=== PATIENT | male | born 1955 | race Caucasian/White ===

== ENCOUNTER 2017-01-21 22:58 | Emergency (ER) | payer BC ==
[~2017-01-21] VITALS: Ht 185.4 cm; Wt 81.6 kg
[2017-01-22 00:09] LABS: BASO # 0.1 K/mm3 (0.0-0.2); BASO % 0.8 % (0.0-1.0); EOS # 0.4 K/mm3 (0.0-0.50); EOS % 4.7 % (0.0-3.0); LARGE UNSTAINED CELL # 0.3 K/mm3 (0.0-0.4); LARGE UNSTAINED CELL % 4.2 % (0.0-4.0); LYMPH % 36.1 % (24.0-44.0); MEAN CORPUSCULAR HEMOGLOBIN 30.9 pg (27.0-33.0); MEAN CORPUSCULAR HGB CONC 33.4 g/dl (32.0-36.5); MEAN CORPUSCULAR VOLUME 92.5 fl (80.0-96.0); MONO # 0.8 K/mm3 (0.0-0.8); MONO % 10.5 % (0.0-5.0); NEUTROPHILS # 3.2 K/mm3 (1.8-7.7); NEUTROPHILS % 43.7 % (36.0-66.0); PLATELET COUNT, AUTOMATED 134 k/mm3 (150-450); RED CELL DISTRIBUTION WIDTH 13.2 % (11.5-14.5); WHITE BLOOD COUNT 7.4 K/mm3 (4.0-10.0)
[2017-01-22 00:25] LABS: ALBUMIN 3.8 GM/DL (3.2-5.2); ALBUMIN/GLOBULIN RATIO 1.46 (1.00-1.93); ALKALINE PHOSPHATASE 68 U/L (45-117); ALT/SGPT 74 U/L (12-78); ANION GAP 7 MEQ/L (8-16); AST/SGOT 37 U/L (15-37); BILIRUBIN,DIRECT 0.1 MG/DL (0.0-0.2); BILIRUBIN,TOTAL 0.6 MG/DL (0.2-1.0); BLOOD UREA NITROGEN 25 MG/DL (7-18); CALCIUM LEVEL 8.7 MG/DL (8.8-10.2); CARBON DIOXIDE LEVEL 28 MEQ/L (21-32); CHLORIDE LEVEL 105 MEQ/L (98-107); CREATININE FOR GFR 0.85 MG/DL (0.70-1.30); GLOMERULAR FILTRATION RATE > 60.0 (>49); GLUCOSE, FASTING 104 MG/DL (80-110); POTASSIUM SERUM 3.9 MEQ/L (3.5-5.1); SODIUM LEVEL 140 MEQ/L (136-145); TOTAL PROTEIN 6.4 GM/DL (6.4-8.2)
[2017-01-22] MEDS ORDERED: NS 1,000 ML IV ONE (02:00)
[2017-01-22 04:19] VITALS: BP 118/77
--- NOTE | 2017-01-22 09:36 | REP ---
CHEST PA AND LATERAL: 01/21/2017. Comparison: 03/22/2016. Clinical history: Weakness. Findings: Lungs are well inflated. There is no pleural effusion, lateral pleural thickening or apical scarring. No infiltrate, atelectasis or mass. The heart, mediastinal and hilar contours were normal. There are a few cuffed bronchi in the perihilar regions that might reflect reactive airway disease or bronchitis. The aorta is calcified at the arch without aneurysm. Airway midline. No mediastinal or hilar mass nor contour abnormality. Bones without acute compression deformity or focal lesion. No free air under the diaphragm. Impression:1. No acute cardiopulmonary change. A few cuffed bronchi again seen that may reflect reactive airway disease or bronchitis. Signed by Eliot Chamberlain MD 01/22/2017 10:53 A
--- NOTE | 2017-01-22 21:02 | ECGEPIP ---
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
== END 2017-01-22 04:24 | disposition home or self-care (01) ==
LOC: EDSEX 22:58 → M ED 22:58 → EDBD 22:58 → M ED 01-22 00:42
DX: E86.0 Dehydration (principal)

== ENCOUNTER → 2018-06-06 | Outpatient (REF) | payer BC | LOC: M LAB REF 16:55 | DX: L72.3 Sebaceous cyst (principal) | CPT/HCPCS: 87186 ==

== ENCOUNTER 2018-11-26 06:54 | Day surgery (SDC) | payer BC ==
[~2018-11-26] VITALS: Ht 185.4 cm; Wt 81.6 kg
[2018-11-26] MEDS ORDERED: NS 1,000 ML IV ONE (07:00)
[2018-11-26] MEDS ORDERED: LIDOCAINE 2% INJ 100 MG/5 ML SDV (FOR ANES.) As Ordered ONE (07:13)
[2018-11-26] MEDS ORDERED: PROPOFOL 200 MG/20 ML VIAL As Ordered ONE (07:13)
--- NOTE | 2018-11-26 08:44 | ROOR ---
Patient Name: Ac Adam Procedure Date: 11/26/2018 8:18 AM Date of : 1955 Age: 63 [facility] Gender: Male Note Status: Finalized Procedure: Total Colonoscopy to Cecum Indications: Colon cancer screening in patient at increased risk: Colorectal cancer in mother, High risk colon cancer surveillance: Personal history of colonic polyps Providers: Niles Velasquez MD Referring MD: HERMILO SILVA JR, MD Requesting Provider: Medicines: Monitored Anesthesia Care Complications: No immediate complications. Procedure: Pre-Anesthesia Assessment: - The heart rate, respiratory rate, oxygen saturations, blood pressure, adequacy of pulmonary ventilation, and response to care were monitored throughout the procedure. The Colonoscope was introduced through the anus and advanced to the cecum, identified by appendiceal orifice and ileocecal valve. The colonoscopy was performed without difficulty. The patient tolerated the procedure well. The quality of the bowel preparation was excellent. Findings: The perianal and digital rectal examinations were normal. Non-bleeding internal hemorrhoids were found during retroflexion. The hemorrhoids were small and Grade I (internal hemorrhoids that do not prolapse). No other significant abnormalities were identified in a careful examination of the remainder of the colon. The exam was otherwise without abnormality on direct and retroflexion views. Impression: - Non-bleeding internal hemorrhoids. - The examination was otherwise normal on direct and retroflexion views. - No specimens collected. - The exam was otherwise normal to the cecum. Recommendation: - Patient has a contact number available for emergencies. The signs and symptoms of potential delayed complications were discussed with the patient. Return to normal activities tomorrow. Written discharge instructions were provided to the patient. - High fiber diet. - Discharge patient to home. - Continue present medications. - Repeat colonoscopy in 5 years for screening purposes. - Return to referring physician. - The findings and recommendations were discussed with the patient's family. Niles Velasquez MD Niles Velasquez MD 11/26/2018 8:43:49 AM This report has been signed electronically. Number of Addenda: 0 Note Initiated On: 11/26/2018 8:18 AM Estimated Blood Loss: Estimated blood loss: none.
[2018-11-26 09:05] VITALS: BP 118/79
== END 2018-11-26 09:10 | disposition home or self-care (01) ==
LOC: M OPP 06:54
PROVIDERS: ATTEND Internal Medicine Gastroenterology
DX: Z12.11 Encounter for screening for malignant neoplasm of colon (principal); Z86.010 Personal history of colon polyps; Z80.0 Family history of malignant neoplasm of digestive organs; K64.0 First degree hemorrhoids

== ENCOUNTER 2019-01-21 08:31 | Emergency (ER) | payer BC, MEDICARE ==
[~2019-01-21] VITALS: Ht 185.4 cm; Wt 81.8 kg
[2019-01-21 09:26] LABS: BASO # 0.1 10^3/uL (0.0-0.2); BASO % 0.6 % (0.0-1.0); EOS # 0.2 10^3/uL (0.0-0.50); EOS % 1.9 % (0.0-3.0); HEMATOCRIT 46.7 % (42.0-52.0); HEMOGLOBIN 15.7 g/dl (13.5-17.5); LYMPH # 1.9 10^3/uL (1.5-4.5); LYMPH % 22.5 % (24.0-44.0); MEAN CORPUSCULAR HEMOGLOBIN 30.8 pg (27.0-33.0); MEAN CORPUSCULAR HGB CONC 33.6 g/dl (32.0-36.5); MEAN CORPUSCULAR VOLUME 91.6 fl (80.0-96.0); MONO % 12.2 % (0.0-5.0); NEUTROPHILS # 5.3 10^3/uL (1.8-7.7); NEUTROPHILS % 62.6 % (36.0-66.0); PLATELET COUNT, AUTOMATED 182 10^3/uL (150-450); WHITE BLOOD COUNT 8.4 10^3/uL (4.0-10.0)
[2019-01-21 09:47] LABS: BLOOD UREA NITROGEN 22 MG/DL (7-18); CALCIUM LEVEL 8.8 MG/DL (8.8-10.2); CARBON DIOXIDE LEVEL 28 MEQ/L (21-32); CHLORIDE LEVEL 104 MEQ/L (98-107); CREATININE FOR GFR 1.01 MG/DL (0.70-1.30); GLOMERULAR FILTRATION RATE > 60.0 (>49); GLUCOSE, FASTING 95 MG/DL (70-100); POTASSIUM SERUM 4.6 MEQ/L (3.5-5.1); SODIUM LEVEL 137 MEQ/L (136-145)
[2019-01-21 10:04] VITALS: BP 137/80
--- NOTE | 2019-01-21 10:04 | REP ---
Abdominal aorta ultrasound: Abdominal Aortic Measurements are as follows: Proximal 2.2 cm AP 2.6 cm TRV Renal Artery Level 2.3 cm AP 2.5 cm TRV Mid Aorta 2.2 cm AP 2.4 cm TRV Distal Aorta 2.1 cm AP 2.3 cm TRV R Iliac Artery 1.1 cm AP 1.1 cm TRV L Iliac Artery 1.1 cm AP 1.1 cm TRV Impression: There is no evidence of abdominal aortic aneurysm. Electronically Signed by Bret Jimenez MD 01/21/2019 09:55 A
[2019-01-21 10:38] LABS: INR 1.03; PROTHROMBIN TIME 13.6 SECONDS (12.1-14.4)
[2019-01-21 10:39] LABS: PARTIAL THROMBOPLASTIN TIME 35.5 SECONDS (25.4-37.6)
== END 2019-01-21 10:05 | disposition home or self-care (01) ==
LOC: M ED 08:31
DX: R19.8 Other specified symptoms and signs involving the digestive system and abdomen (principal)

== ENCOUNTER → 2020-05-19 | Outpatient (REF) | payer BC, MEDICARE | LOC: M LAB REF 10:49 | PROVIDERS: ATTEND Dermatology | DX: L72.0 Epidermal cyst (principal) ==

== ENCOUNTER 2020-11-11 04:59 | Emergency (ER) | payer BC, MEDICARE ==
[~2020-11-11] VITALS: Ht 185.4 cm; Wt 77.6 kg
[2020-11-11 05:00] VITALS: BP 143/75
--- OUTSIDE RECORDS SUMMARY | 2020-11-11 05:54 | CCD | Continuity of Care Document ---
Author Author Lab Schedule, Ac Coats Organization Unknown Address [address] [place] [id number] Phone Unavailable Care Team Providers Care Surveyor Rod Helper Name Role Phone Wilberto Thomas JR, MD AUTM Unavailable Xiang Peck MD AUTM [phone] Problems Active Problems Provider Date Hyperlipidemia screening Yamil Ray D.O. Onset: 1 12/01/2012 History of malignant neoplasm of skin Yamil Ray D.O. Onset: 09/30/2013 Degenerative joint disease involving multiple joints Yamil aRy D.O. Onset: 09/30/2013 Pure hypercholesterolemia Yamil Ray D.O. Onset: 09/30/2013 Social History Type Date Description Comments Sex Unknown ETOH Use consumes 4-5 beers per week Tobacco Use Start: Unknown Patient has never smoked Allergies, Adverse Reactions, Alerts Description No Known Drug Allergies Medications Active Medications SIG Qnty Indications Ordering Provide r Date No OTC Meds Elias Byers 10/03/2011 Sennosides 8.6mg Tablets Unknown Medications Administered in Office Medication SIG Qnty Indications Ordering Provider Date Administration Of Flu Vaccine Inj ection Wilberto Thomas MD 07/16/2020 Administration Of Flu Vaccine Inj alysia Thomas MD 08/01/2019 Immunization Adminstration,1 Vaccine/Tox oid Injection Wilberto Thomas MD 2017 Administration Of Flu Vaccine Inj ection Elias ByersOSteve 08/04 Administration Of Flu Vaccine Inj mackenzieion Wilberto Thomas MD 08/12/2003 Administration Of Flu Vaccine Inj ection Wilberto Thomas MD 09/05/2002 Immunizations CPT Code Status Date Vaccine Lot # [id number] Given 10/05/2020 Pneumovax 23 [id number] 49870 Given 07/16/2020 Influenza Vaccin e Quadrivalent Preser/Antibiotic Free Im Use [id number] U-PneuC Given 10/14/2019 Prevnar 13 75433 Given 10/14/2019 Shingrix Zoster Vaccine (HZV), Recombinant, Subunit, Adjuvanted 98581 Given 08/01/2019 Influenza Vaccin e Quadrivalent Preser/Antibiotic Free Im Use 802201 37782 Given 07/26/2018 Influenza Virus Vaccine, Quadrivalent (Cciiv4), Derived From Cell [id number] Given 10/03/2011 Fluvirin Virus Vaccine 19322 Given 11/02/2009 Tetanus/Diptheria(Td)Toxoids Preservative Free 23153 Given 11/02/2009 PPD 65489 Given 08/06/2009 Influenza Virus Vaccine 66095 Given 08/04/2005 Influenza Virus Vaccine 94977 Given 08/12/2003 Influenza Virus Vaccine 60136 Given 09/05/2002 Influenza Virus Vaccine Vital Signs Date Vital Result Comment 10/05/2020 8:59am BP Systolic 136 mmHg BP Diastolic 80 mmHg Height 73 inches 6'1" Weight 168.25 lb BMI (Body Mass Index) 22.2 kg/m2 08/18/2020 1:53pm BP Systolic 130 mmHg BP Diastolic 70 mmHg Height 73 inches 6'1" Weight 179.00 lb BMI (Body Mass Index) 23.6 kg/m2 Results Test Acquired Date Facility Test Result H/L Range Note Laboratory test finding 10/02/2020 [facility] Otolaryngologist: [place] [address] [phone] PSA 0.49 ng/mL <4.00 1 Complete Blood Count 10/02/2020 [facility] Otolaryngologist: RICHIE Jones [address] [phone] WBC 5.3 x10*3/UL 4.1 - 10.9 RBC 5.05 x10*6/UL 4.20 - 6.30 Hemoglobin 15.4 g/dL 12.0 - 18.0 Hematocrit 44.3 % 37.0 - 51.0 MCV 87.7 fL 80.0 - 97.0 MCH 30.6 pg 26.0 - 32.0 MCHC 34.8 g/dL 31.0 - 38.0 RDW 13.6 % 11.6 - 13.7 PLT 177 x10*3/UL 140 - 440 MPV 9.4 FL 7.8 - 11.0 Lymph % 26.9 % 10.0 - 58.5 Mid % 6.2 % 1.7 - 9.3 Neut % 66.9 % 37.0 - 92.0 Lymph # 1.4 x10*3/UL 0.6 - 4.1 Mid # 0.4 x10*3/UL 0.1 - 0.6 Neut # 3.5 x10*3/UL 2.0 - 7.8 Comprehensive Chem Profile 10/02/2020 [facility], Otolaryngologist: [place] [address] [phone] Glucose 96 mg/dL 74 - 99 2 BUN 11 mg/dL 7 - 18 Creatinine 0.9 mg/dL 0.6 - 1.3 Sodium 138 mEq/L 136 - 145 Potassium 4.8 mEq/L 3.5 - 5.1 Chloride 101 mEq/L 98 - 107 Carbon Dioxide 28 mEq/L 21 - 32 Calcium 9.0 mg/dL 8.5 - 10.1 Alk. Phosphatase 65 mg/dL 46 - 116 Total Bilirubin 1.1 mg/dL High 0.2 - 1.0 Ast (Sgot) 23 U/L 15 - 37 Alt (SGPT) 27 U/L 12 - 78 Albumin 4.3 g/dL 3.4 - 5.0 Total Protein 6.8 g/dL 6.4 - 8.2 A/G Ratio 1.72 CALC 1.00 - 1.90 GFR >= 60 mL/min >60 GFR >= 60 mL/min >60 3 Lipid Profile 10/02/2020 [facility] , Otolaryngologist: [place] [address] [phone] Cholesterol 183 mg/dL 131 - 200 Triglycerides 42 mg/dL 30 - 150 HDL Cholesterol 79 mg/dL High 35 - 60 LDL (Calculated) 96 CALC 50 - 159 Laboratory test finding 10/02/2020 [facility] Otolaryngologist: [place] [address] [phone] Thyroid Stimulating Hormone 2.25 uIU/mL 0.3 6 - 3.74 1 This assay was performed on the Siemens Dimension EXL using the B- Galactosidase/CPRG methodology and should not be compared interchangeably with other methods. The PSA should not be used alone as a screening test for the presence or absence of malignant disease. 2 100-125 mg/dL PRE-DIABET ES/FASTING >126 mg/dL DIABETES/FASTING 3 CHRONIC KIDNEY DISEASE STAGI NG PER NKF STAGE I & II GFR >= 60 NORMAL TO MILDLY DECREASED STAGE III GFR 30-59 MODERATELY DECREASED STAGE IV GFR 15-29 SEVERELY DECREASED STAGE V GFR <15 VERY LITTLE GFR LEFT ESRD GFR <15 ON BITUMINOUS DISTRIBUTOR OPERATOR Procedures Date Code Description Status 11/26/2018 73110599 Colonoscopy Completed 02/08/2016 [id number] Colonoscopy Completed 10/21/2005 [id number] Colonoscopy Completed Medical Devices Description No Information Available Encounters Type Date Location Provider Dx Diagnosis Office Visit 08/18/2020 2:00p [facility] Enzo pradip Melara JR PA K59.00 Constipation, unspecified Assessments Date Code Description Provider 10/02/2020 E78.00 Pure hypercholesterolemia, unspe cified Wilberto Thomas MD 10/02/2020 E78.00 Pure hypercholesterolemia, unspe cified Lab Schedule 10/02/2020 K59.00 Constipation, unspecified Georgi Thomas MD 10/02/2020 K59.00 Constipation, unspecified Lab Sc hedule 10/02/2020 N40.0 Benign prostatic hyp erplasia without lower urinary tract symptoms Wilberto Thomas MD 10/02/2020 N40.0 Benign prostatic hyperplasia wit hout lower urinary tract sym Lab Schedule 10/02/2020 Z12.5 Encounter for screening for anjali gnant neoplasm of prostate Wilberto Thomas MD 10/02/2020 Z12.5 Encounter for screening for anjali gnant neoplasm of prostate Lab Schedule 08/18/2020 K59.00 Constipation, unspecified BOBO Mari JR 07/16/2020 Z23 Encounter for immunization Lacho Thomas MD 07/16/2020 Z23 Encounter for immunization Nurse Schedule Plan of Treatment Future Appointment(s):* 10/06/2021 9:00 am - Nurse #2 at [facility] * 10/06/2021 9:20 am - Wilberto Thomas MD at [facility] 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 PT WOULD LIKE TO BE SEEN ROXANN DUE TO CONSTIPATION GETTING WORSE Patient Notified 09/16/2020 [facility] Medical Practice [address] [address] [phone]
--- OUTSIDE RECORDS SUMMARY | 2020-11-11 05:55 | CCD | Continuity of Care Document ---
Author Author Lab Schedule, Ac Coats Organization Unknown Address [address] [place] [address] Phone Unavailable Care Team Providers Care Transmission Rebuilder Name Role Phone Wilberto Thomas JR, MD AUTM Unavailable Xiang Peck MD AUTM [phone] Problems Active Problems Provider Date Hyperlipidemia screening Yamil Ray D.O. Onset: 1 12/01/2012 History of malignant neoplasm of skin Yamil Ray D.O. Onset: 09/30/2013 Degenerative joint disease involving multiple joints Yamil Ray D.O. Onset: 09/30/2013 Pure hypercholesterolemia Yamil Ray [...] CPT Code Status Date Vaccine Lot # [id number] Given 07/16/2020 Influenza Vaccin e Quadrivalent Preser/Antibiotic Free Im Use [id number] U-PneuC Given 10/14/2019 Prevnar 13 61260 Given 10/14/2019 Shingrix Zoster Vaccine (HZV), Recombinant, Subunit, Adjuvanted 46355 Given 08/01/2019 Influenza Vaccin e Quadrivalent Preser/Antibiotic Free Im Use 365831 99132 Given 07/26/2018 Influenza Virus Vaccine, Quadrivalent (Cciiv4), Derived From Cell [id number] Q2037 Given 10/03/2011 Fluvirin Virus Vaccine 13558 Given 11/02/2009 Tetanus/Diptheria(Td)Toxoids Preservative Free 27058 Given 11/02/2009 PPD 19482 Given 08/06/2009 Influenza Virus Vaccine 16042 Given 08/04/2005 Influenza Virus Vaccine 08771 Given 08/12/2003 Influenza Virus Vaccine 86026 Given 09/05/2002 Influenza Virus Vaccine Vital Signs [...] H/L Range Note Laboratory test finding 10/02/2020 [facility], [facility] Hemodialysis Technician: [place] [address] [phone] PSA 0.49 ng/mL <4.00 1 Complete Blood Count 10/02/2020 [facility] [employer] [facility]i Hemodialysis Technician: RICHIE Jones [address] [phone] WBC 5.3 x10*3/UL 4.1 - 10.9 RBC [...] 2.0 - 7.8 Comprehensive Chem Profile 10/02/2020 [facility], Hemodialysis Technician: [place] [address] [phone] Glucose 96 mg/dL 74 - 99 2 [...] 60 mL/min >60 3 Lipid Profile 10/02/2020 [facility] , Hemodialysis Technician: [place] [address] [phone] Cholesterol 183 mg/dL 131 - 200 Triglycerides 42 mg/dL 30 - 150 HDL Cholesterol 79 mg/dL High 35 - 60 LDL (Calculated) 96 CALC 50 - 159 1 This assay was performed on the [employer] EXL using the B- Galactosidase/CPRG methodology and [...] LITTLE GFR LEFT ESRD GFR <15 ON SENIOR QUALITY ANALYST Procedures Date Code Description Status 11/26/2018 [id number] Colonoscopy Completed 02/08/2016 [id number] Colonoscopy Completed 10/21/2005 [id number] Colonoscopy Completed Medical Devices Description No Information Available Encounters Type Date Location Provider Dx Diagnosis Office Visit 08/18/2020 2:00p [facility] 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 PT WOULD LIKE TO BE SEEN ROXANN DUE TO CONSTIPATION GETTING WORSE Patient Notified 09/16/2020 [facility] Medical Practice [address] [address] [phone]
--- OUTSIDE RECORDS SUMMARY | 2020-11-11 05:55 | CCD | Continuity of Care Document ---
Author Author Ac PECK MD Organization Unknown Address [address] [place] [address] Phone [phone] Care Team Providers Care Squad Leader Name Role Phone Wilberto Thomas MD @ [facility] [phone] Problems Description No Information Available Social History Type Date Description Comments Sex Unknown ETOH Use Denies alcohol use Tobacco Use Start: Unknown Non Smoker Allergies, Adverse Reactions, Alerts Description No Known Drug Allergies Medications Active Medications SIG Qnty Indications Ordering Provide r Date Sennosides 8.6mg Tablets take 2 tablets by mouth daily at bedtime 60tabs K59.00 Xiang Peck MD 09/21/20 20 History Medications No Active Medications Unknown 04/2020 - 09/21/2020 Immunizations Description No Information Available Vital Signs Date Vital Result Comment 09/21/2020 4:04pm BP Systolic 160 mmHg BP Diastolic 90 mmHg Height 73 inches 6'1" Weight 168.00 lb BMI (Body Mass Index) 22.2 kg/m2 [place] Body Weight 184 lb Weight 76.205 kg BSA (Body Surface Area) 2.00 m2 Results Description No Information Available Procedures Description No Information Available Medical Devices Description No Information Available Encounters Type Date Location Provider Dx Diagnosis Office Visit 09/21/2020 3:15p [facility] Xiang garcia MD K59.00 Constipation, unspecified Assessments Date Code Description Provider 09/21/2020 K59.00 Constipation, unspecified Xiang Peck MD Plan of Treatment 09/21/2020 - Xiang Peck MD* K59.00 Constipation, unspecified * * New Medication:* Sennosides 8.6 mg * Comments:* sudden onset constipation Jul 2709/2020. Has been working on correctiin this since. doing a bit better on low fiber.He still has high lactose intake. * Follow up:* 1 month * Recommendations:* Xray reportedly did not show large stool. I wonder if he has excess gas related to lactose intolerance. I rec avoiding dairy products x 1 week straight If not better, then can try senna -daily dosing. Follow up with me in 1 month Would at this time not repeat colonoscopy--last done in 2019 was normal I note increased TSH in 2017. Not sure if has had repeat thyroid testing. If not, then would recommend TFT---I will leave this up to PCP Functional Status Description No Information Available Mental Status Description No Information Available Referrals Description No Information Available
--- OUTSIDE RECORDS SUMMARY | 2020-11-11 05:55 | CCD | Continuity of Care Document ---
Author Author Nurse #Ac Guerrero Organization Unknown Address [address] [address] Phone Unavailable Care Team Providers Care Automobile And Property Underwriter Name Role Phone Wilberto Thomas JR, MD AUTM Unavailable Xiang Peck MD AUTM [phone] Problems Active Problems Provider Date Hyperlipidemia screening [...] MD 07/16/2020 Administration Of Flu Vaccine Inj mackenzieion Wilberto Thomas MD 08/01/2019 Immunization Adminstration,1 Vaccine/Tox oid Injection Wilberto Thomas MD 2017 Administration Of Flu Vaccine Inj ection Elias ByersOSteve 08/04 Administration Of Flu Vaccine Inj ection Wilberto Thomas MD 08/12/2003 Administration Of Flu Vaccine Inj ection Wiblerto Thomas MD 09/05/2002 Immunizations CPT Code Status Date Vaccine Lot # 11479 Given 07/16/2020 Influenza Vaccin e Quadrivalent Preser/Antibiotic Free Im Use [id number] U-PneuC Given 10/14/2019 Prevnar 13 34117 Given 10/14/2019 Shingrix Zoster Vaccine (HZV), Recombinant, Subunit, Adjuvanted 62898 Given 08/01/2019 Influenza Vaccin e Quadrivalent Preser/Antibiotic Free Im Use [id number] 05760 Given 07/26/2018 Influenza Virus Vaccine, Quadrivalent (Cciiv4), Derived From Cell [id number] Q2037 Given 10/03/2011 Fluvirin Virus Vaccine 58314 Given 11/02/2009 Tetanus/Diptheria(Td)Toxoids Preservative Free 17905 Given 11/02/2009 PPD 68472 Given 08/06/2009 Influenza Virus Vaccine 28275 Given 08/04/2005 Influenza Virus Vaccine 80518 Given 08/12/2003 Influenza Virus Vaccine 18098 Given 09/05/2002 Influenza Virus Vaccine Vital Signs Date Vital Result Comment 10/05/2020 8:59am BP Systolic 140 mmHg BP Diastolic 80 mmHg Height 73 inches 6'1" Weight 168.25 lb BMI (Body Mass Index) 22.2 kg/m2 08/18/2020 1:53pm BP Systolic 130 mmHg BP Diastolic 70 mmHg Height 73 inches 6'1" Weight 179.00 lb BMI (Body Mass Index) 23.6 kg/m2 Results Test Acquired Date Facility Test Result H/L Range Note Laboratory test finding 10/02/2020 [facility] [employer] [facility] shelli roland Retail Salesperson: [place] [address] [phone] PSA 0.49 ng/mL <4.00 1 Complete Blood Count 10/02/2020 [facility] Retail Salesperson: RICHIE Jones [address] [phone] WBC 5.3 x10*3/UL 4.1 - 10.9 RBC [...] 2.0 - 7.8 Comprehensive Chem Profile 10/02/2020 [facility], Retail Salesperson: [place] [address] [phone] Glucose 96 mg/dL 74 - 99 2 [...] 60 mL/min >60 3 Lipid Profile 10/02/2020 [facility] , Retail Salesperson: [place] [address] [phone] Cholesterol 183 mg/dL 131 - 200 Triglycerides 42 mg/dL 30 - 150 HDL Cholesterol 79 mg/dL High 35 - 60 LDL (Calculated) 96 CALC 50 - 159 1 This assay was performed on the DN2K EXL using the B- Galactosidase/CPRG methodology and [...] LITTLE GFR LEFT ESRD GFR <15 ON SANITATION WORKER Procedures Date Code Description Status 11/26/2018 [id number] Colonoscopy Completed 02/08/2016 [id number] Colonoscopy Completed 10/21/2005 [id number] Colonoscopy Completed Medical Devices Description No Information Available Encounters Type Date Location Provider Dx Diagnosis Office Visit 08/18/2020 2:00p [facility] 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 PT WOULD LIKE TO BE SEEN ROXANN DUE TO CONSTIPATION GETTING WORSE Patient Notified 09/16/2020 [facility] Medical Practice [address] [id number] [phone]
--- OUTSIDE RECORDS SUMMARY | 2020-11-11 05:55 | CCD | Continuity of Care Document ---
Author Author [facility] [place] Organization Unknown Address [address] [address] Phone [phone] Care Team Providers Care Ornamental Rail Installer Name Role Phone Wilberto Thomas JR, MD AUT Unavailable Problems Active Problems Provider Date Hyperlipidemia screening [...] SIG Qnty Indications Ordering Provide r Date Shingrix 50mcg/0.5ML Suspension Re c administer 0.5 milliliters intramuscular, repeat in 2 to 6 months 2units Wilberto Thomas MD 10/02/2019 Prevnar 13 Suspension 0.5 cubic centimeters x 1 1units Wilberto Thomas MD 10/02/2019 No OTC Meds Elias Byers 10/03/2011 Medications Administered in Office Medication SIG Qnty Indications Ordering Provider Date Administration Of Flu Vaccine Inj ection Wilberto Thomas MD 07/16/2020 Administration Of Flu Vaccine Inj ection Wilberto Thomas MD 08/01/2019 Immunization Adminstration,1 Vaccine/Tox oid Injection Wilberto Thomas MD 2017 Administration Of Flu Vaccine Inj ection Yamil Ray D.O. 08/04 Administration Of Flu Vaccine Inj ection Wilberto Thomas MD 08/12/2003 Administration Of Flu Vaccine Inj mackenzieion Wilberto Thomas MD 09/05/2002 Immunizations CPT Code Status Date Vaccine Lot # [id number] Given 07/16/2020 Influenza Vaccin e Quadrivalent Preser/Antibiotic Free Im Use [id number] 19025 Given 08/01/2019 Influenza Vaccin e Quadrivalent Preser/Antibiotic Free Im Use [id number] 84074 Given 07/26/2018 Influenza Virus Vaccine, Quadrivalent (Cciiv4), Derived From Cell [id number] Given 10/03/2011 Fluvirin Virus Vaccine 51089 Given 11/02/2009 Tetanus/Diptheria(Td)Toxoids Preservative Free 87127 Given 11/02/2009 PPD 67625 Given 08/06/2009 Influenza Virus Vaccine 85470 Given 08/04/2005 Influenza Virus Vaccine 34532 Given 08/12/2003 Influenza Virus Vaccine 15705 Given 09/05/2002 Influenza Virus Vaccine Vital Signs Date Vital Result Comment 08/18/2020 1:53pm BP Systolic 130 mmHg BP Diastolic 70 mmHg Height 73 inches 6'1" Weight 179.00 lb BMI (Body Mass Index) 23.6 kg/m2 10/02/2019 9:19am BP Systolic 128 mmHg BP Diastolic 72 mmHg Heart Rate 70 /min Height 73 inches 6'1" Weight 187.00 lb BMI (Body Mass Index) 24.7 kg/m2 Results Description No Information Available Procedures Date Code Description Status 11/26/2018 [id number] Colonoscopy Completed 02/08/2016 [id number] Colonoscopy Completed 10/21/2005 [id number] Colonoscopy Completed Medical Devices Description No Information Available Encounters Description No Information Available Assessments Date Code Description Provider 07/16/2020 Z23 Encounter for immunization Colli maribell Thomas MD 07/16/2020 Z23 Encounter for immunization Nurse Schedule Plan of Treatment Future Appointment(s):* 10/05/2020 9:20 am - Wilberto Thomas MD at [facility] * 10/05/2020 9:00 am - Nurse #2 at [facility] Functional Status Description No Information Available Mental Status Description No Information Available Referrals Description No Information Available
--- OUTSIDE RECORDS SUMMARY | 2020-11-11 05:55 | CCD | Continuity of Care Document ---
Author Author Lab Schedule, [facility] [place] Organization Unknown Address [address] [address] Phone Unavailable Care Team Providers Care Scrap Metal Collector Name Role Phone Wilberto Thomas JR, MD AUTM Unavailable Problems Active Problems Provider Date Hyperlipidemia screening Yamil Rya D.O. Onset: 1 12/01/2012 History of malignant [...] CPT Code Status Date Vaccine Lot # [id number] Given 07/16/2020 Influenza Vaccin e Quadrivalent Preser/Antibiotic Free Im Use [id number] U-PneuC Given 10/14/2019 Prevnar 13 71112 Given 10/14/2019 Shingrix Zoster Vaccine (HZV), Recombinant, Subunit, Adjuvanted 04167 Given 08/01/2019 Influenza Vaccin e Quadrivalent Preser/Antibiotic Free Im Use 148424 33651 Given 07/26/2018 Influenza Virus Vaccine, Quadrivalent (Cciiv4), Derived From Cell [id number] Given 10/03/2011 Fluvirin Virus Vaccine 07643 Given 11/02/2009 Tetanus/Diptheria(Td)Toxoids Preservative Free 86445 Given 11/02/2009 PPD 06552 Given 08/06/2009 Influenza Virus Vaccine 10105 Given 08/04/2005 Influenza Virus Vaccine 56541 Given 08/12/2003 Influenza Virus Vaccine 03895 Given 09/05/2002 Influenza Virus Vaccine Vital Signs [...] Available Procedures Date Code Description Status 11/26/2018 [id number] Colonoscopy Completed 02/08/2016 [id number] Colonoscopy Completed 10/21/2005 [id number] Colonoscopy Completed Medical Devices Description No Information Available Encounters Type Date Location Provider Dx Diagnosis Office Visit 08/18/2020 2:00p [facility] BOBO Cortez JR K59.00 Constipation, unspecified Assessments Date Code Description Provider 08/18/2020 K59.00 Constipation, unspecified BOBO Mari JR 07/16/2020 Z23 Encounter for immunization Colli maribell Thomas MD 07/16/2020 Z23 Encounter for immunization Nurse Schedule Plan of Treatment Future Appointment(s):* 10/05/2020 9:20 am - Wilberto Thomas MD at [facility] * 10/05/2020 9:00 am - Nurse #2 at [facility] 10/02/2019 - Wilberto Thomas MD* Z00.00 Encounter for general adult medical examination without abno * E78.00 Pure hypercholesterolemia, unspecified * N40.0 Benign prostatic hyperplasia without lower urinary tract sym * Z80.0 Family history of malignant neoplasm of digestive organs * Z12.5 Encounter for screening for malignant neoplasm of prostate * All * New Medication:* Shingrix 50 mcg/0.5ML - administer 0.5 milliliters intramuscular, repeat in 2 to 6 months * Prevnar 13 - 0.5 cubic centimeters x 1 * Comments:* Prevnar discussed and Prevnar sent to pharmacy. Pneumovax in 1 week. Shingrix also discussed and sent to pharmacy. Functional Status Description No Information Available Mental Status Description No Information Available Referrals Refer to Reason for Referral Status Appt Date Xiang Peck MD SLIDE DEVELOPER CONSULT FOR CONSTIPATION, FAMILY HX OF COLON CANCER, PT DOES NOT WANT TO SEE DR KESSLER -, PLEASE LET OFFICE KNOW IF AN APPT HAS BEEN MADE. PT WOULD LIKE TO BE SEEN ROXANN DUE TO CONSTIPATION GETTING WORSE Patient Notified 09/16/2020 [facility] Medical Practice [address] [address] [phone]
--- OUTSIDE RECORDS SUMMARY | 2020-11-11 05:55 | CCD | Continuity of Care Document ---
Author Author [facility] [place] Organization Unknown Address [address] [address] Phone [phone] Care Team Providers Care Chef German Name Role Phone Wilberto Thomas JR, MD [...] CPT Code Status Date Vaccine Lot # [id number] Given 07/16/2020 Influenza Vaccin e Quadrivalent Preser/Antibiotic Free Im Use 135350 U-PneuC Given 10/14/2019 Prevnar 13 12528 Given 10/14/2019 Shingrix Zoster Vaccine (HZV), Recombinant, Subunit, Adjuvanted 09764 Given 08/01/2019 Influenza Vaccin e Quadrivalent Preser/Antibiotic Free Im Use 329349 54254 Given 07/26/2018 Influenza Virus Vaccine, Quadrivalent (Cciiv4), Derived From Cell [id number] Given 10/03/2011 Fluvirin Virus Vaccine 26865 Given 11/02/2009 Tetanus/Diptheria(Td)Toxoids Preservative Free 78487 Given 11/02/2009 PPD 89460 Given 08/06/2009 Influenza Virus Vaccine 66659 Given 08/04/2005 Influenza Virus Vaccine 05630 Given 08/12/2003 Influenza Virus Vaccine 90102 Given 09/05/2002 Influenza Virus Vaccine Vital Signs [...] Available Procedures Date Code Description Status 11/26/2018 [id number] Colonoscopy Completed 02/08/2016 [id number] Colonoscopy Completed 10/21/2005 [id number] Colonoscopy Completed Medical Devices Description No Information Available Encounters Type Date Location Provider Dx Diagnosis Office Visit 08/18/2020 2:00p [facility] BOBO Cortez JR K59.00 Constipation, unspecified Assessments Date Code Description Provider 08/18/2020 K59.00 Constipation, unspecified BOBO Mari JR 07/16/2020 Z23 Encounter for immunization Colli maribell Thomas MD 07/16/2020 Z23 Encounter for immunization Nurse Schedule Plan of Treatment Future Appointment(s):* 10/05/2020 9:20 am - Wilberto Thomas MD at [facility] * 10/05/2020 9:00 am - Nurse #[address] [facility] 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 PT WOULD LIKE TO BE SEEN ROXANN DUE TO CONSTIPATION GETTING WORSE Patient Notified 09/16/2020 [facility] Medical Practice [address] [address] [phone]
--- OUTSIDE RECORDS SUMMARY | 2020-11-11 05:55 | CCD ---
Author Author [facility] Organization [facility] Address Unknown Phone Unavailable Care Team Providers Care Business Process Coordinator Name Role Phone Deven CORDOVA JR TONI PA-C Unavailable Unavailable PICKERAL JR, J TONI PA-C Unavailable Unavailable PICKERAL JR, J TONI PA-C Unavailable Unavailable PICKERAL JR, J TONI PA-C Unavailable Unavailable PICKERAL JR, J TONI PA-C Unavailable Unavailable PICKERAL JR, J TONI PA-C Unavailable Unavailable PICKERAL JR, J TONI PA-C Unavailable Unavailable PICKERAL JR, J TONI PA-C Unavailable Unavailable PICKERAL JR, J TONI PA-C Unavailable Unavailable PICKERAL JR, J TONI PA-C Unavailable Unavailable PICKERAL JR, J TONI PA-C Unavailable Unavailable PICKERAL JR, J TONI PA-C Unavailable Unavailable PICKERAL JR, J TONI PA-C Unavailable Unavailable PICKERAL JR, J TONI PA-C Unavailable Unavailable PICKERAL JR, J TONI PA-C Unavailable Unavailable PICKERAL JR, J TONI PA-C Unavailable Unavailable PICKERAL JR, J TONI PA-C Unavailable Unavailable PICKERAL JR, J TONI PA-C Unavailable Unavailable PICKERAL JR, J TONI PA-C Unavailable Unavailable ART JR, J TONI PA-C Unavailable Unavailable MICHAEL IGLESIAS MD Unavailable Unavailable MICHAEL IGLESIAS MD Unavailable Unavailable MICHAEL IGLESIAS MD Unavailable Unavailable MICHAEL IGLESIAS MD Unavailable Unavailable MICHAEL IGLESIAS MD Unavailable Unavailable MICHAEL IGLESIAS MD Unavailable Unavailable MICHAEL IGLESIAS MD Unavailable Unavailable MICHAEL IGLESIAS MD Unavailable Unavailable MICHAEL IGLESIAS MD Unavailable Unavailable MICHAEL IGLESIAS MD Unavailable Unavailable MICHAEL IGLESIAS MD Unavailable Unavailable REINDL, MICHAEL MD Unavailable Unavailable REINDL, MICHAEL MD Unavailable Unavailable REINDL, MICHAEL MD Unavailable Unavailable REINDL, MICHAEL MD Unavailable Unavailable REINDL, MICHAEL MD Unavailable Unavailable REINDL, MICHAEL MD Unavailable Unavailable REINDL, MICHAEL MD Unavailable Unavailable REINDL, MICHAEL MD Unavailable Unavailable REINDL, MICHAEL MD Unavailable Unavailable REINDL, MICHAEL MD Unavailable Unavailable REINDL, MICHAEL MD Unavailable Unavailable REINDL, MICHAEL MD Unavailable Unavailable REINDL, MICHAEL MD Unavailable Unavailable REINDL, MICHAEL MD Unavailable Unavailable REINDL, MICHAEL MD Unavailable Unavailable REINDL, MICHAEL MD Unavailable Unavailable REINDL, MICHAEL MD Unavailable Unavailable REINDL, MICHAEL MD Unavailable Unavailable REINDL, MICHAEL MD Unavailable Unavailable REINDL, MICHAEL MD Unavailable Unavailable REINDL, MICHAEL MD Unavailable Unavailable REINDL, MICHAEL MD Unavailable Unavailable REINDL, MICHAEL MD Unavailable Unavailable REINDL, MICHAEL MD Unavailable Unavailable REINDL, MICHAEL MD Unavailable Unavailable REINDL, MICHAEL MD Unavailable Unavailable REINDL, MICHAEL MD Unavailable Unavailable REINDL, MICHAEL MD Unavailable Unavailable REINDL, MICHAEL MD Unavailable Unavailable REINDL, MICHAEL MD Unavailable Unavailable REINDL, MICHAEL MD Unavailable Unavailable REINDL, MICHAEL MD Unavailable Unavailable REINDL, MICHAEL MD Unavailable Unavailable Re-disclosure Warning The records that you are about to access may contain information from federally-assisted alcohol or drug abuse programs. If such information is present, then the following federally mandated warning applies: This information has been disclosed to you from records protected by federal confidentiality rules (42 CFR part 2). The federal rules prohibit you from making any further disclosure of this information unless further disclosure is expressly permitted by the written consent of the person to whom it pertains or as otherwise permitted by 42 CFR part 2. A general authorization for the release of medical or other information is NOT sufficient for this purpose. The Federal rules restrict any use of the information to criminally investigate or prosecute any alcohol or drug abuse patient.The records that you are about to access may contain highly sensitive health information, the redisclosure of which is protected by Article 27-F of the [facility] Public Health law. If you continue you may have access to information: Regarding HIV / AIDS; Provided by facilities licensed or operated by the [facility] Office of Mental Health; or Provided by the [facility] Office for People With Developmental Disabilities. If such information is present, then the following [facility] mandated warning applies: This information has been disclosed to you from confidential records which are protected by state law. State law prohibits you from making any further disclosure of this information without the specific written consent of the person to whom it pertains, or as otherwise permitted by law. Any unauthorized further disclosure in violation of state law may result in a fine or snf sentence or both. A general authorization for the release of medical or other information is NOT sufficient authorization for further disc losure. Family History Family Member Name Family Member Gender Family Member Status Date o f Status Description Data Source(s) Unknown Unknown Problem [facility] ([facility]) Unknown Unknown Problem [facility] ([facility]) Unknown Unknown Problem [facility] ([facility]) Unknown Unknown Problem [facility] ([facility]) Unknown Female Problem [facility] ([facility]) Unknown Male Problem [facility] ([facility]) Encounters Encounter Providers Location Date Indications Data Source(s ) Outpatient Attender: MICHAEL Carpenter/Nayeli/Cy/Katia dl 09/21/2020 02:15:00 PM EST [facility] Outpatient Attender: TONI Bojorquez 1 10/18/2019 01:00:00 PM EST [facility] ([facility] ) Immunizations Vaccine Date Status Description Data Source(s) pneumococcal polysaccharide PPV23 10/05/2020 09:17:00 AM EST comple irene [facility] ([facility]) Influenza, injectable, MDCK, preservative free, eagle valent 07/16/2020 09:20:00 AM EDT completed [facility] [facility] This CVX should only be used for histori aud[facility] records where the formulation of pneumococcal conjugate vaccine is not known. 10/14/2019 12:26:00 PM EST completed [facility] ([facility] ) Shingrix Zoster Vaccine (HZV), Recombinant, Subunit, A djuvanted 10/14/2019 12:25:00 PM EST completed [facility]) VARICELLA-ZOSTER VIRUS GLYCOPROTEIN E,REC/AS01B ADJUVA NT/PF 10/14/2019 12:00:00 AM EST completed [facility] PNEUMOCOCCAL 13-VALENT CONJUGATE VACCINE (DIPHTHERIA C RM)/PF 10/14/2019 12:00:00 AM EST completed [facility] Medications Medication Brand Name Start Date Product Form Dose Route Admi nistrative Instructions Pharmacy Instructions Status Indications Reaction Description Data Source(s) No Active Medications 09/21/2020 12:00:00 AM EST completed [facility] ([facility], ) sennosides, GROUP HOME 8.6 MG Oral Tablet Sennosides 09/21/2020 12:00:00 AM EST ORAL active [facility] ([facility]) Administration Of Flu Vaccine 07/16/2020 12:00:00 AM EDT completed [facility] [facility]) Medication administered onsite 0.5 ML Streptococcus pneumoniae serotype 1 capsular antigen diphtheria LFA147 protein conjugate vaccine 0.0044 MG/ML / Streptococcus pneumoniae serotype 14 capsular antigen diphtheria KIP468 protein conjugate vaccine 0.0044 MG/ML / Streptococcus pneumonia Prevnar 13 10/02/2019 12:00:00 AM EST active [facility]) Shingrix Shingrix 10/02/2019 12:00:00 AM EST activ e [facility] ([facility]) Insurance Providers Payer name Policy type / Coverage type Policy ID Covered constitution party ID Covered constitution party's relationship to link Policy Link Plan Information MEDICARE BLUE PPO [id number] SP [id number] MEDICARE [id number] SP [id number] BCBS [place] PPO 302/[id number] SP [id number] EXCELLUS BCBS B [id number] S VYM [id number] MEDICARE C [id number] S [id number] EXCELLUS BCBS B [id number] S [id number] [facility] [place] Commercial [id number] Self [id number] Hmo Blue Health Maintenance Organization (HMO) [id number] Self [id number] [place] Trad/MX Medigap Part B [id number] Self [id number] Lifetime Benefit ([employer]) Commercial [id number] Self [id number] [facility] Commercial [id number] Self [id number] [place] Trad/[place] Medigap Part B [id number] Self [id number] BS Analisa Trad/MX Commercial [id number] Self [id number] o Blue Health Maintenance Organization (O) [id number] Self [id number] BCBS [place] PPO 302/[id number] SP [id number] [place] Trad/MX Commercial 802 Self 802 o [place] Health Maintenance Organization ([facility]) Se lf BS Analisa Trad/MX Commercial 802 Self 802 Lifetime Benefit ([employer]) Commercial DEEPTHI B Self DEEPTHI B [facility] Commercial High Deductible Epo Self High Deductible Epo [place] Trad/MX Commercial 802 Self 802 EXCELLUS BCBS B [id number] S VYS [id number] BCBS/Excellus Commercial Self BS Of [place] Commercial Self [employer] MEDICAL CLAIMS [id number] SP [id number] [facility] [id number] SP [id number] SELF PAY 5 UNAVAILABLE 1 UNAVAILA BLE [id number] Results ID Date Data Source [id number] 10/02/2020 08:01:00 AM EST [facility] ([facility]) Name Value Range Interpretation Code Description Data Araseli rce(s) Supporting Document(s) Prostate specific Ag [Mass/volume] in Serum or Plasma 0.49 ng/mL [facility] ([facility]) This assay was performed on the Siemens Dimension EXL using the B- Galactosidase/CPRG methodology and should not be compared interchangeably with other methods. The PSA should not be used alone as a screening test for the presence or absence of malignant disease. ID Date Data Source [id number] 10/02/2020 08:00:00 AM EST [facility] ([facility]) Name Value Range Interpretation Code Description Data Araseli rce(s) Supporting Document(s) Thyrotropin [Units/volume] in Serum or Plasma by Detec tion limit <= 0.05 mIU/L 2.25 uIU/mL 0.36-3.74 [facility] ([facility] ) ID Date Data Source [id number] 10/02/2020 08:00:00 AM EST [facility] ([facility]) Name Value Range Interpretation Code Description Data Araseli rce(s) Supporting Document(s) Cholesterol [Mass/volume] in Serum or Plasma 183 mg/dL 131-200 [facility] ([facility]) Triglyceride [Mass/volume] in Serum or Plasma 42 mg/dL 30-150 [facility] ([facility]) Cholesterol in HDL [Mass/volume] in Serum or Plasma 79 mg/dL 35-60 [facility] ([facility]) Cholesterol in LDL [Mass/volume] in Serum or Plasma by calcu lation 96 CALC 50-159 [facility] ([facility]) ID Date Data Source [id number] 10/02/2020 08:00:00 AM EST [facility] ([facility]) Name Value Range Interpretation Code Description Data Araseli rce(s) Supporting Document(s) Glucose [Mass/volume] in Serum or Plasma 96 mg/dL 74-99 [facility] ([facility]) 100-125 mg/dL PRE-DIABETES/FASTING >126 mg/dL DIABETES/FASTING Creatinine 0.9 mg/dL 0.6-1.3 [facility] ([facility]) Urea nitrogen [Mass/volume] in Serum or Plasma 11 mg/dL 7-18 [facility] ([facility]) Potassium [Moles/volume] in Serum or Plasma 4.8 meq/L 3.5-5.1 [facility] ([facility]) Sodium [Moles/volume] in Serum or Plasma 138 meq/L 136-145 [facility] ([facility]) Chloride [Moles/volume] in Serum or Plasma 101 meq/L 98-107 [facility] ([facility]) Total Bilirubin 1.1 mg/dL 0.2-1.0 [facility] ([facility]) Carbon dioxide, total [Moles/volume] in Serum or Plasma 28 meq/L 21 -32 [facility] ([facility]) Calcium [Mass/volume] in Serum or Plasma 9.0 mg/dL 8.5-10.1 [facility] ([facility]) Alkaline phosphatase isoenzyme [Units/volume] in Serum or Pl asma 65 mg/dL 46-116 [facility] ([facility]) Albumin [Mass/volume] in Serum or Plasma 4.3 g/dL 3.4-5.0 [facility] ([facility]) Aspartate aminotransferase [Enzymatic activity/volume] in Serum or Plasma 23 U/L 15-37 [facility] ([facility] ) Alanine aminotransferase [Enzymatic activity/volume] in Seru m or Plasma 27 U/L 12-78 [facility] Proteinase 3 Ab [Units/volume] in Serum 6.8 g/dL 6.4-8.2 [facility] A/G Ratio 1.72 CALC 1.00-1.90 [facility] [facility] Glomerular filtration rate/1.73 sq M pre dicted among blacks [Volume Rate/Area] in Serum or Plasma by Creatinine-based formula (MDRD) Laboratory test result [facility] <content>CHRONIC KIDNEY DISEASE STAGING PER NKF</content>
<content></content>
<content>STAGE I & II GFR >= 60 NORMAL TO MILDLY DECREASED</content>
<content>STAGE III GFR 30-59 MODERATELY DECREASED</content>
<content>STAGE IV GFR 15-29 SEVERELY DECREASED</content>
<content>STAGE V GFR <15 VERY LITTLE GFR LEFT</content>
<content>ESRD GFR <15 ON PROJECT MANAGEMENT MANAGER</content>
<content></content> Glomerular filtration rate/1.73 sq M pre dicted among non-blacks [Volume Rate/Area] in Serum or Plasma by Creatinine-based formula (MDRD) Laboratory test result [facility] ([facility] ) ID Date Data Source [id number] 10/02/2020 08:00:00 AM EST [facility] ([facility]) Name Value Range Interpretation Code Description Data Araseli rce(s) Supporting Document(s) Leukocytes [#/volume] in Blood by Automated count 5.3 x10*3/UL 4.1-10 .9 [facility] Hemoglobin [Mass/volume] in Blood 15.4 g/dL 12.0-18.0 [facility] Erythrocytes [#/volume] in Blood by Automated count 5.05 x10*6/UL 4.2 0-6.30 [facility] ([facility]) Hematocrit [Volume Fraction] of Blood by Automated count 44.3 % 3 7.0-51.0 [facility] ([facility]) MCV 87.7 fL 80.0-97.0 [facility] MCH 30.6 pg 26.0-32.0 [facility] [facility] Erythrocyte distribution width [Ratio] by Automated count 13.6 % 11.6-13.7 [facility] ([facility]) MCHC 34.8 g/dL 31.0-38.0 [facility] [facility] MPV 9.4 FL 7.8-11.0 [facility] [facility] Mid % 6.2 % 1.7-9.3 [facility] [facility] Lymph % 26.9 % 10.0-58.5 [facility] [facility] Platelets [#/volume] in Blood by Automated count 177 x10*3/UL 140-440 [facility] ([facility]) Lymph # 1.4 x10*3/UL 0.6-4.1 [facility] ([facility]) Neut % 66.9 % 37.0-92.0 [facility] [facility] Mid # 0.4 x10*3/UL 0.1-0.6 [facility] ([facility]) Neut # 3.5 x10*3/UL 2.0-7.8 [facility] ([facility]) ID Date Data Source [id number] 08/18/2020 12:00:00 AM EST [facility] Wilberto Thomas Jr, MD Patient Name: MARK [id number] [facility] Date of : 1955[place] [address] Date of Exam: 08/18/2020#: Fax: [phone] EXAM: ABDOMEN AP (KUB) X-RAYCLINICAL INFORMATION: Clinical constipation.Gas and stool seen throughout the colon and within the rectosigmoid region. The intestinal gas pattern is non-specific. The stool pattern is withinnormal limits. The organ silhouettes in so far as delineated areunremarkable. There is no evidence of free intraperitoneal air.There is a loop of gas filled non-dilated small bowel in the mid-abdomen.IMPRESSION:Unrem arkable KUB.FRANK Quach/Hyun you for referring MARK CONTRERAS to our office. Electronically Signed - LAUREN GUAN DO 08/19/20 12:54 Name Value Range Interpretation Code Description Data Araseli rce(s) Supporting Document(s) ID Date Data Source [id number] 10/02/2019 07:33:00 AM EST [facility] ([facility]) Name Value Range Interpretation Code Description Data Araseli rce(s) Supporting Document(s) Prostate specific Ag [Mass/volume] in Serum or Plasma <pending> [facility] Procedure Vital Signs ID Date Data Source [id number] Name Value Range Interpretation Code Description Data Source(s) Body mass index (BMI) [Ratio] 22.2 kg/m2 22.2 k g/m2 [facility] ([facility]) Body weight 168.25 [lb_av] 168.25 [lb_av] [facility] T ([facility]) Body height 73 [in_i] 73 [in_i] [facility] ([facility]) 6'1" Diastolic blood pressure 80 mm[Hg] 80 mm[Hg] [facility] ([facility]) Systolic blood pressure 136 mm[Hg] 136 mm[Hg] M EDSERGIO ([facility]) Body surface area Derived from formula 2.00 m2 2.00 m2 [facility] ([facility]) Body weight 76.205 kg 76.205 kg [facility] ([facility] [place] body weight 184 [lb_av] 184 [lb_av] [facility] T ([facility]) Body mass index (BMI) [Ratio] 22.2 kg/m2 22.2 k g/m2 [facility] ([facility]) Body weight 168.00 [lb_av] 168.00 [lb_av] [facility] T ([facility]) Body height 73 [in_i] 73 [in_i] [facility] ([facility]) 6'1" Diastolic blood pressure 90 mm[Hg] 90 mm[Hg] [facility] ([facility]) Systolic blood pressure 160 mm[Hg] 160 mm[Hg] [facility] ([facility]) Body mass index (BMI) [Ratio] 23.6 kg/m2 23.6 k g/m2 [facility] ([facility]) Body weight 179.00 [lb_av] 179.00 [lb_av] [facility] T ([facility]) Body height 73 [in_i] 73 [in_i] [facility] ([facility]) 6'1" Diastolic blood pressure 70 mm[Hg] 70 mm[Hg] [facility] ([facility]) Systolic blood pressure 130 mm[Hg] 130 mm[Hg] [facility] ([facility]) Body mass index (BMI) [Ratio] 24.7 kg/m2 24.7 k g/m2 [facility] ([facility]) Body weight 187.00 [lb_av] 187.00 [lb_av] [facility] T ([facility]) Body height 73 [in_i] 73 [in_i] [facility] ([facility]) 6'1" Heart rate 70 /min 70 /min [facility] ([facility]) Diastolic blood pressure 72 mm[Hg] 72 mm[Hg] [facility]) Systolic blood pressure 128 mm[Hg] 128 mm[Hg] [facility] ([facility])
--- OUTSIDE RECORDS SUMMARY | 2020-11-11 05:55 | CCD | Continuity of Care Document ---
Author Author Ac Thomas MD Organization Unknown Address [address] [address] Phone [phone] Care Team Providers Care Cloth Printer Helper Name Role Phone Wilberto Thomas JR, MD [facility] Unavailable Xiang Peck MD [facility] [phone] Problems Active Problems Provider Date Hyperlipidemia screening [...] CPT Code Status Date Vaccine Lot # [id number] Given 07/16/2020 Influenza Vaccin e Quadrivalent Preser/Antibiotic Free Im Use [id number] U-PneuC Given 10/14/2019 Prevnar 13 [id number] Given 10/14/2019 Shingrix Zoster Vaccine (HZV), Recombinant, Subunit, Adjuvanted 81688 Given 08/01/2019 Influenza Vaccin e Quadrivalent Preser/Antibiotic Free Im Use [id number] Given 07/26/2018 Influenza Virus Vaccine, Quadrivalent (Cciiv4), Derived From Cell [id number] Given 10/03/2011 Fluvirin Virus Vaccine 67359 Given 11/02/2009 Tetanus/Diptheria(Td)Toxoids Preservative Free 69217 Given 11/02/2009 PPD 22941 Given 08/06/2009 Influenza Virus Vaccine 04890 Given 08/04/2005 Influenza Virus Vaccine 54456 Given 08/12/2003 Influenza Virus Vaccine 01397 Given 09/05/2002 Influenza Virus Vaccine Vital Signs [...] H/L Range Note Laboratory test finding 10/02/2020 [place] [facility] shelli roland Resident Physician In Radiology: [place] [address] [phone] PSA 0.49 ng/mL <4.00 1 Complete Blood Count 10/02/2020 [facility] [place] Resident Physician In Radiology: RICHIE Jones [address] [phone] WBC 5.3 x10*3/UL 4.1 - 10.9 RBC [...] 2.0 - 7.8 Comprehensive Chem Profile 10/02/2020 [facility], Resident Physician In Radiology: [place] [address] [phone] Glucose 96 mg/dL 74 - 99 2 [...] 60 mL/min >60 3 Lipid Profile 10/02/2020 [facility] , Resident Physician In Radiology: Dr [place] [address] [phone] Cholesterol 183 mg/dL 131 - 200 Triglycerides [...] LITTLE GFR LEFT ESRD GFR <15 ON PERSONAL LINES INSURANCE ADVISOR Procedures Date Code Description Status 11/26/2018 [id number] Colonoscopy Completed 02/08/2016 [id number] Colonoscopy Completed 10/21/2005 [id number] Colonoscopy Completed Medical Devices Description No Information Available Encounters Type Date Location Provider Dx Diagnosis Office Visit 08/18/2020 2:00p [facility] BOBO Cortez JR K59.00 Constipation, [...] Referral Status Appt Date Xiang Peck MD MONITORING TECH CONSULT FOR CONSTIPATION, FAMILY HX OF COLON CANCER, PT DOES NOT WANT TO SEE DR KESSLER -, PLEASE LET OFFICE KNOW IF AN APPT HAS BEEN MADE. PT WOULD LIKE TO BE SEEN ROXANN DUE TO CONSTIPATION GETTING WORSE Patient Notified 09/16/2020 [facility] Medical Practice [address] [id number] [phone]
== END 2020-11-11 06:24 | disposition home or self-care (01) ==
LOC: M ED 04:59
DX: K56.41 Fecal impaction (principal)

== ENCOUNTER → 2020-12-03 | Outpatient (CLI) | payer MEDICARE ==
[~2020-12-03] MED LIST: MIRA3350 PO
== END ==
LOC: M LABSMTC 10:01
PROVIDERS: ATTEND Anesthesiology
DX: Z01.812 Encounter for preprocedural laboratory examination (principal); Z20.822 Contact with and (suspected) exposure to COVID-19

== ENCOUNTER 2020-12-08 10:28 | Day surgery (SDC) | payer MEDICARE ==
[~2020-12-08] VITALS: Ht 182.9 cm; Wt 75.7 kg
[~2020-12-08 10:28] MED LIST changes: +NS 1,000 ML IV ONE
--- OUTSIDE RECORDS SUMMARY | 2020-12-08 10:35 | CCD ---
Author Author [facility] Organization [facility] Address Unknown Phone Unavailable Care Team Providers Care Java Programming Professor Name Role Phone Deven CORDOVA JR TONI [...] PICKERAL JR, J TONI PA-C Unavailable Unavailable RAT JR, J TONI PA-C Unavailable Unavailable MICHAEL [...] Unavailable REINDL, MICHAEL MD Unavailable Unavailable REINDL, MICHALE MD Unavailable Unavailable REINDL, MICHAEL MD Unavailable [...] is protected by Article 27-F of the [facility] Public Health law. If you continue you may have access to information: Regarding HIV / AIDS; Provided by facilities licensed or operated by the [facility] Office of Mental Health; or Provided by the [facility] Office for People With Developmental Disabilities. If such information is present, then the following [facility] mandated warning applies: This information has been [...] law may result in a fine or senior care sentence or both. A general authorization for [...] Data Source(s ) Outpatient Attender: MICHAEL Carpenter/Nayeli/Cy/Katia garcia 09/21/2020 02:15:00 PM EST [facility] Outpatient Attender: TONI Bojorquez 1 10/18/2019 01:00:00 PM EST [facility] ([facility] ) Immunizations Vaccine Date Status Description Data Source(s) pneumococcal polysaccharide PPV23 10/05/2020 09:17:00 AM EST comple irene [facility] ([facility]) Influenza, injectable, MDCK, preservative free, eagle valent 07/16/2020 09:20:00 AM EDT completed [facility] This CVX should only be used for histori audrey records where the formulation of pneumococcal conjugate vaccine is not known. 10/14/2019 12:26:00 PM EST completed [facility] ([facility] ) Shingrix Zoster Vaccine (HZV), Recombinant, Subunit, A djuvanted 10/14/2019 12:25:00 PM EST completed [facility] VARICELLA-ZOSTER VIRUS GLYCOPROTEIN E,REC/AS01B ADJUVA NT/PF 10/14/2019 12:00:00 AM EST completed [facility] PNEUMOCOCCAL 13-VALENT CONJUGATE VACCINE (DIPHTHERIA C RM)/PF 10/14/2019 12:00:00 AM EST completed [facility] Medications Medication Brand Name Start Date Product Form Dose Route Admi nistrative Instructions Pharmacy Instructions Status Indications Reaction Description Data Source(s) MAGNESIUM CITRATE 11/11/2020 12:00:00 AM EST solution 296 USE FOR ADDITIONAL PREP 2-3 DAYS BEFORE PROCEDURE USE FOR ADDITIONAL PREP 2-3 DAYS BEFORE PROCEDURE SOLD: 11/13/2020 [facility] 420 gram 11/11/2020 12:00:00 AM EST recon soln [address] VALDOVINOS PREP USE DIRECTED ON DR VALDOVINOS PREP SOLD: 11/13/2020 [facility] No Active Medications 09/21/2020 12:00:00 AM EST completed [facility] ([facility], ) sennosides, GROUP HOME 8.6 MG Oral Tablet Sennosides 09/21/2020 12:00:00 AM EST ORAL active [facility] ([facility], ) Administration Of Flu Vaccine 07/16/2020 12:00:00 AM EDT completed [facility] ([facility]) Medication administered onsite Insurance Providers Payer name Policy type / Coverage type Policy ID Covered green party ID Covered green party's relationship to link Policy Link Plan Information MEDICARE BLUE PPO 306 [id number] SP [id number] MEDICARE BLUE PPO 306 [id number] SP [id number] MEDICARE BLUE PPO 306 [id number] SP [id number] MEDICARE [id number] SP [id number] [place] O 302/307 [id number] SP [id number] EXCELLUS BCBS B [id number] S [id number] [id number] MEDICARE C [id number] S [id number] EXCELLUS BCBS B [id number] S [id number] [facility] [place] Commercial [id number] Self [id number] o Blue [employer] Maintenance Organization (O) [id number] Self [id number] BS Ozan Trad/MX Medigap Part B [id number] Self [id number] Lifetime Benefit ([employer]) Commercial [id number] Self [id number] [employer] Commercial [id number] Self [id number] BS Analisa Trad/MX Medigap Part B [id number] Self [id number] BS Ozan Trad/MX Commercial [id number] Self [id number] [facility] Blue Health Maintenance Organization (O) [id number] Self [id number] BCBS [place] PPO 302/307 [id number] SP [id number] BS Ozan Trad/MX Commercial 802 Self 802 o Blue [employer] Maintenance Organization (O) Se lf BS Ozan Trad/MX Commercial 802 Self 802 Lifetime Benefit ([employer]) Commercial DEEPTHI B Self DEEPTHI B [employer] Commercial High Deductible Epo Self High Deductible Epo BS Analisa Trad/MX Commercial 802 Self 802 EXCELLUS BCBS B [id number] S VYS [id number] BCBS/Excellus Commercial Self BS [facility] [place] Commercial Self [employer] MEDICAL CLAIMS [id number] SP [id number] [facility] PHY [id number] SP [id number] SELF PAY 5 UNAVAILABLE 1 UNAVAILA BLE [id number] Results ID Date Data Source [id number] 12/03/2020 11:00:00 AM EST [facility] Name Value Range Interpretation Code Description Data Araseli rce(s) Supporting Document(s) SARS coronavirus 2 RNA Not Detected [facility] [place] This lab was ordered by [facility] and reported by [facility]. ID Date Data Source [id number] 10/02/2020 08:01:00 AM EST [facility] ([facility]) Name Value Range Interpretation Code Description Data Araseli rce(s) Supporting Document(s) Prostate specific Ag [Mass/volume] in Serum or Plasma 0.49 ng/mL [facility] ([facility]) This assay was performed on the Siemens Dimension EXL using the B- Galactosidase/CPRG methodology and should not be compared interchangeably with other methods. The PSA should not be used alone as a screening test for the presence or absence of malignant disease. ID Date Data Source [id number] 10/02/2020 08:00:00 AM EST [facility] ([facility]) Name Value Range Interpretation Code Description Data Araseli rce(s) Supporting Document(s) Thyrotropin [Units/volume] in Serum or Plasma by Detec tion limit <= 0.05 mIU/L 2.25 uIU/mL 0.36-3.74 [facility] ([facility] ) ID Date Data Source [id number] 10/02/2020 08:00:00 AM EST [facility] ([facility]) Name Value Range Interpretation Code Description Data Araseli rce(s) Supporting Document(s) Cholesterol [Mass/volume] in Serum or Plasma 183 mg/dL 131-200 [facility] ([facility]) Triglyceride [Mass/volume] in Serum or Plasma 42 mg/dL 30-150 [facility] ([facility]) Cholesterol in HDL [Mass/volume] in Serum or Plasma 79 mg/dL 35-60 [facility] ([facility]) Cholesterol in LDL [Mass/volume] in Serum or Plasma by calcu lation 96 CALC 50-159 [facility] ([facility]) ID Date Data Source [id number] 10/02/2020 08:00:00 AM EST [facility] ([facility]) Name Value Range Interpretation Code Description Data Araseli rce(s) Supporting Document(s) Glucose [Mass/volume] in Serum or Plasma 96 mg/dL 74-99 [facility] ([facility]) 100-125 mg/dL PRE-DIABETES/FASTING >126 mg/dL DIABETES/FASTING Creatinine 0.9 mg/dL 0.6-1.3 [facility] Urea nitrogen [Mass/volume] in Serum or Plasma 11 mg/dL 7-18 [facility] ([facility]) Potassium [Moles/volume] in Serum or Plasma 4.8 meq/L 3.5-5.1 [facility] ([facility]) Sodium [Moles/volume] in Serum or Plasma 138 meq/L 136-145 [facility] ([facility]) Chloride [Moles/volume] in Serum or Plasma 101 meq/L 98-107 [facility] ([facility]) Total Bilirubin 1.1 mg/dL 0.2-1.0 [facility] ([facility]) Carbon dioxide, total [Moles/volume] in Serum or Plasma 28 meq/L 21 -32 [facility] ([facility]) Calcium [Mass/volume] in Serum or Plasma 9.0 mg/dL 8.5-10.1 [facility] ([facility]) Alkaline phosphatase isoenzyme [Units/volume] in Serum or Pl asma 65 mg/dL 46-116 [facility] ([facility]) Albumin [Mass/volume] in Serum or Plasma 4.3 g/dL 3.4-5.0 [facility] ([facility]) Aspartate aminotransferase [Enzymatic activity/volume] in Serum or Plasma 23 U/L 15-37 [facility] ([facility] ) Alanine aminotransferase [Enzymatic activity/volume] in Seru m or Plasma 27 U/L 12-78 [facility] ([facility]) Proteinase 3 Ab [Units/volume] in Serum 6.8 g/dL 6.4-8.2 [facility] ([facility]) A/G Ratio 1.72 CALC 1.00-1.90 [facility] Glomerular filtration rate/1.73 sq M pre dicted among blacks [Volume Rate/Area] in Serum or Plasma by Creatinine-based formula (MDRD) Laboratory test result [facility] <content>CHRONIC KIDNEY DISEASE STAGING PER NKF</content>
<content></content>
<content>STAGE I & II GFR >= 60 NORMAL TO MILDLY DECREASED</content>
<content>STAGE III GFR 30-59 MODERATELY DECREASED</content>
<content>STAGE IV GFR 15-29 SEVERELY DECREASED</content>
<content>STAGE V GFR <15 VERY LITTLE GFR LEFT</content>
<content>ESRD GFR <15 ON PRODUCT OPERATIONS ASSOCIATE</content>
<content></content> Glomerular filtration rate/1.73 sq M pre dicted among non-blacks [Volume Rate/Area] in Serum or Plasma by Creatinine-based formula (MDRD) Laboratory test result [facility] ([facility] ) ID Date Data Source [id number] 10/02/2020 08:00:00 AM EST [facility] ([facility]) Name Value Range Interpretation Code Description Data Araseli rce(s) Supporting Document(s) Leukocytes [#/volume] in Blood by Automated count 5.3 x10*3/UL 4.1-10 .9 [facility] ([facility]) Hemoglobin [Mass/volume] in Blood 15.4 g/dL 12.0-18.0 [facility] ([facility]) Erythrocytes [#/volume] in Blood by Automated count 5.05 x10*6/UL 4.2 0-6.30 [facility] ([facility]) Hematocrit [Volume Fraction] of Blood by Automated count 44.3 % 3 7.0-51.0 [facility] ([facility]) MCV 87.7 fL 80.0-97.0 [facility]) MCH 30.6 pg 26.0-32.0 [facility]) Erythrocyte distribution width [Ratio] by Automated count 13.6 % 11.6-13.7 [facility] ([facility]) MCHC 34.8 g/dL 31.0-38.0 [facility] ([facility]) MPV 9.4 FL 7.8-11.0 [facility]) Mid % 6.2 % 1.7-9.3 [facility]) Lymph % 26.9 % 10.0-58.5 [facility]) Platelets [#/volume] in Blood by Automated count 177 x10*3/UL 140-440 [facility] ([facility]) Lymph # 1.4 x10*3/UL 0.6-4.1 [facility] ([facility]) Neut % 66.9 % 37.0-92.0 [facility] Mid # 0.4 x10*3/UL 0.1-0.6 [facility] ([facility]) Neut # 3.5 x10*3/UL 2.0-7.8 [facility] ([facility]) ID Date Data Source [id number] 08/18/2020 12:00:00 AM EST [facility] Wilberto Thomas Jr, MD Patient Name: MARK [id number] [facility] Date of : 1955[place] [address] Date of Exam: 08/18/2020#: Fax: [phone] EXAM: [...] Code Description Data Araseli rce(s) Supporting Document(s) Procedure Vital Signs ID Date Data Source UNK Name Value Range Interpretation Code Description Data Source(s) Body mass index (BMI) [Ratio] 22.2 kg/m2 22.2 k g/m2 [facility] ([facility]) Body weight 168.25 [lb_av] 168.25 [lb_av] [facility] ([facility]) Body height 73 [in_i] 73 [in_i] [facility] ([facility]) 6'1" Diastolic blood pressure 80 mm[Hg] 80 mm[Hg] [facility] ([facility]) Systolic blood pressure 136 mm[Hg] 136 mm[Hg] [facility] ([facility]) Body surface area Derived from formula 2.00 m2 2.00 m2 [facility] ([facility]) Body weight 76.205 kg 76.205 kg [facility] ([facility]) [place] body weight 184 [lb_av] 184 [lb_av] [facility] ([facility]) Body mass index (BMI) [Ratio] 22.2 kg/m2 22.2 k g/m2 [facility] ([facility]) Body weight 168.00 [lb_av] 168.00 [lb_av] [facility] ([facility]) Body height 73 [in_i] 73 [in_i] [facility] ([facility]) 6'" Diastolic blood pressure 90 mm[Hg] 90 mm[Hg] [facility] ([facility]) Systolic blood pressure 160 mm[Hg] 160 mm[Hg] [facility] ([facility]) Body mass index (BMI) [Ratio] 23.6 kg/m2 23.6 k g/m2 [facility] ([facility]) Body weight 179.00 [lb_av] 179.00 [facility]lb_av] [facility] Body height 73 [in_i] 73 [in_i] [facility] ([facility]) 6'" Diastolic blood pressure 70 mm[Hg] 70 mm[Hg] [facility] ([facility]) Systolic blood pressure 130 mm[Hg] 130 mm[Hg] [facility] ([facility])
[2020-12-08] MEDS ORDERED: propofoL 500 MG/50 ML VIAL As Ordered ONE ×2 (12:52→13:27)
[2020-12-08] MEDS ORDERED: LIDOCAINE 2% 100MG/5ML SDV (FOR ANES.) As Ordered ONE (12:52)
--- NOTE | 2020-12-08 13:31 | ROOR ---
Patient Name: Ac Adam Procedure Date: 12/08/2020 12:49 PM Date of : 1955 Age: 65 Room: [facility] Gender: Male Note Status: Finalized Procedure: Colonoscopy Indications: Generalized abdominal pain, Change in bowel habits, Constipation Providers: Xiang IGLESIAS MD Referring MD: HERMILO SILVA JR, MD Requesting Provider: Medicines: Monitored Anesthesia Care Complications: No immediate complications. Procedure: Pre-Anesthesia Assessment: - The heart rate, respiratory rate, oxygen saturations, blood pressure, adequacy of pulmonary ventilation, and response to care were monitored throughout the procedure. The Colonoscope was introduced through the anus and advanced to the terminal ileum, with identification of the appendiceal orifice and IC valve. The Colonoscope was introduced through the anus and advanced to the terminal ileum, with identification of the appendiceal orifice and IC valve. The colonoscopy was somewhat difficult due to a redundant colon. Successful completion of the procedure was aided by changing endoscopes. The patient tolerated the procedure well. The quality of the bowel preparation was good. Findings: The perianal and digital rectal examinations were normal. The sigmoid colon was moderately redundant. Two sessile polyps were found in the sigmoid colon and splenic flexure. The polyps were 4 to 6 mm in size. These polyps were removed with a cold snare. Resection and retrieval were complete. Internal hemorrhoids were found during retroflexion. The hemorrhoids were moderate. The exam was otherwise without abnormality on direct and retroflexion views. Impression: - Redundant sigmoid colon. - Two 4 to 6 mm polyps in the sigmoid colon and at the splenic flexure, removed with a cold snare. Resected and retrieved. - Internal hemorrhoids. - The examination was otherwise normal on direct and retroflexion views. Recommendation: - Continue present medications. - Repeat colonoscopy in 5 years for surveillance. Procedure Code(s): --- Professional --- 64704, Colonoscopy, flexible; with removal of tumor(s), polyp(s), or other lesion(s) by snare technique Diagnosis Code(s): --- Professional --- K63.5, Polyp of colon K64.8, Other hemorrhoids R10.84, Generalized abdominal pain R19.4, Change in bowel habit K59.00, Constipation, unspecified Q43.8, Other specified congenital malformations of intestine CPT copyright 2019 [employer]. All rights reserved. The codes documented in this report are preliminary and upon paint line operator review may be revised to meet current compliance requirements. Xiang Iglesias MD Xiang IGLESIAS MD 12/08/2020 1:30:58 PM Electronically signed by Xiang IGLESIAS MD Number of Addenda: 0 Note Initiated On: 12/08/2020 12:49 PM Estimated Blood Loss: Estimated blood loss: none.
[2020-12-08 13:50] VITALS: BP 114/75
== END 2020-12-08 13:55 | disposition home or self-care (01) ==
LOC: M OPP 10:28
PROVIDERS: ATTEND Internal Medicine Gastroenterology
DX: R10.84 Generalized abdominal pain (principal); R19.4 Change in bowel habit; K63.5 Polyp of colon; Q43.8 Other specified congenital malformations of intestine; K64.8 Other hemorrhoids; Z79.899 Other long term (current) drug therapy; Z80.0 Family history of malignant neoplasm of digestive organs

== ENCOUNTER → 2021-02-26 | Outpatient (REF) | payer MEDICARE ==
[~2021-02-26] MED LIST changes: -NS 1,000 ML IV ONE
== END ==
LOC: M LAB REF 16:36
PROVIDERS: ATTEND Dermatology
DX: D22.5 Melanocytic nevi of trunk (principal); L72.0 Epidermal cyst
CPT/HCPCS: 11102; 17000; 88305; G0463